=== PATIENT | male | born 1990 | race Caucasian/White ===

== ENCOUNTER 2018-03-28 14:06 | Emergency (ER) | payer SELFPAY ==
[2018-03-28] MEDS ORDERED: Ketorolac Tromethamine 30 MG/ML VIAL ONE (15:15)
--- NOTE | 2018-03-28 15:17 | RAD ---
3 VIEWS LEFT WRIST: Date: 03/28/18 HISTORY: Fell from waist level tree onto left arm. Deformity to left arm. Left arm injury. FINDINGS: There is a comminuted fracture involving the distal left radial metaphysis. No definitive intraarticu lar extension can be delineated on this exam. There is a linear lucency extending to the articular urena rface, but this is thought to be related to the trabecular pattern. There is mild apex volar angulati on of fracture fragments. A nondisplaced fracture is seen involving the ulnar styloid process. There are anterior plates and screws transfixing the distal diaphysis of the radius and ulna. IMPRESSION: Mildly comminuted and angulated fracture involving the distal left radial metaphysis, as well as a no ndisplaced fracture of ulnar styloid process with overlying subcutaneous soft tissue swelling. POS: [facility]
[2018-03-28] MEDS ORDERED: PROPOFOL 20 ML ONE (15:37)
[2018-03-28] MEDS ORDERED: Lidocaine 1% PF 5 ML VIAL ONE (15:37)
--- NOTE | 2018-03-29 19:15 | RAD ---
TWO VIEWS LEFT WRIST: 03/29/18 HISTORY: Post reduction radiographs. IMPRESSION: AP and lateral views left wrist demonstrate status post reduction of the distal left radial fracture. Post reduction radiographs demonstrate improved alignment of the posteriorly angulated distal radial fracture fragment. Post reduction radiographs demonstrate improved alignment of the posteriorly angu lated distal radial fracture fragment. Post reduction images demonstrate improved alignment of the di stal left radial fracture. The rest of the left hand is unremarkable. Ulnar styloid fracture is also present. POS: [facility]
== END 2018-03-28 17:40 | disposition home or self-care (01) ==
LOC: ERS 14:06
DX: S52.502A Unspecified fracture of the lower end of left radius, initial encounter for closed fracture (principal); W14.XXXA Fall from tree, initial encounter
CPT/HCPCS: 25605; 96372; 96374; 99152; J1885; J2001; J2704